=== PATIENT | male | born 1960 | race Caucasian/White ===

== ENCOUNTER 2016-11-18 14:11 | Emergency (ER) | payer OTHER ==
--- NOTE | 2016-11-18 14:53 | ERNOTE ---
Chest Pain/Cardiac HPI Chief Complaint: Chest Pain Time Seen by Provider: 11/18/16 14:34 Source: patient Exam Limitations: no limitations Immunizations: IMMUNIZATION HX History of Influenza Vaccine No Allergies/Adverse Reactions: Allergies No Known Allergies Allergy (Verified 11/18/16 14:25) Home Medications: HOME MEDICATIONS Nabumetone 750 mg PO BID #20 tablet 11/18/16 [Last Taken Unknown] Narrative: Pt began to have chest pain on the right side this morning after begining at work. He has tried many things such as position that have helped for a short amount of time but the pain always returns Timing: constant Severity/Quality: moderate Location: other - right chest Chest Pain Radiation: back Activities at Onset: other - usual work Modifying Factors - Improves: Present: position - for a short time Modifying Factors - Worsens: Present: movement Review of Systems - Review of Systems Constitutional: Present: no symptoms reported EYE: Present: no symptoms reported ENT: Present: no symptoms reported Respiratory: Absent: shortness of breath Cardiology: Absent: palpitations Gastrointestinal/Abdominal: Present: no symptoms reported Genitourinary: Present: no symptoms reported Musculoskeletal: Present: back pain, muscle pain Skin: Present: no symptoms reported Neurological: Present: no symptoms reported Endocrine: Present: no symptoms reported Hematologic/Lymphatic: Present: no symptoms reported Psych: Present: no symptoms reported - Patient's Past Medical History Patient History - Medical: GERD Patient History - Cardiac/Respiratory: Asthma Patient History - Cancer: No Hx of Cancer Patient History - Surgical Procedures: No surgical history - Social History Living Situations: home Smoking Status: Current every day smoker Alcohol Use: none Drug Use: none - Immunizations History of Influenza Vaccine: No Physical Exam - Physical Exam General Appearance: Present: wd/wn, alert, no apparent distress Eye Exam: Normal inspection: bilateral, PERRL: bilateral Ears, Nose, Throat: Present: normal ENT inspection Neck: Present: normal inspection, nontender Respiratory: Present: no respiratory distress, normal breath sounds, no accessory muscle use, lungs clear, chest tenderness - Right side with movement and some palpation Cardiovascular/Chest: Present: regular rate, rhythm, no murmur, normal peripheral pulses Back Exam: Present: normal inspection, no vertebral tenderness Extremity Exam: Present: normal inspection, non-tender, normal range of motion, no edema Neurological Exam: Present: alert, oriented, normal mood/affect, no motor/ sensory deficits Skin Exam: Present: normal color, warm/dry Lymphatic Exam: Present: no adenopathy ED Progress - Results and Orders Patient's Lab Results:: I have reviewed the patient's lab results. Results and Orders: Laboratory Tests 11/18/16 11/18/16 14:45 14:45 WBC 6.9 Hgb 13.9 Hct 42.0 Plt Count 256 Sodium 142 Potassium 4.7 H Chloride 106 Carbon Dioxide 28.8 Anion Gap 11.9 BUN 14 Creatinine 1.09 Est GFR (Non-Af Amer) 74 D Random Glucose 86 Calcium 9.1 Calcium Adj for Albumin 8.9 Total Bilirubin 0.5 AST 22 ALT 26 Alkaline Phosphatase 63 Troponin I Less than 0.017 Total Protein 7.1 Albumin 3.9 - Vital Signs Patient's Vital Signs:: I have reviewed the patient's vital signs. Vital Signs: Vital Signs 11/18/16 14:21 Temperature 36.6 C Pulse Rate 47 L Respiratory 15 Rate Blood Pressure 154/71 O2 Sat by Pulse 100 Oximetry - EKG EKG: NSR, no ST T wave changes EKG read: Interp. by me - X-Ray X-Ray #1 X-Ray: chest Interpretation: Reviewed by me X-ray Comments: Nothing acute - Progress/Reassessment Chief Complaint: Chest Pain Departure - Departure Clinical Impression: Chest pain, musculoskeletal Disposition: Home self-care Condition: Good Instructions: Chest Wall Pain, [id number], Nonspecific Chest Pain, Easy-to- Read Prescriptions: Nabumetone 750 mg PO BID #20 tablet
[2016-11-18 14:55] LABS: Hemoglobin 13.9 gm/dL (13.5-18.0); Mean Cell Volume 89.2 fl (78-100); Mean Corpuscular Hemoglobin 29.5 pg (27-31); Mean Corpuscular Hgb Conc 33.1 g/dl (32-36); Neutrophil # 4.1 K/mm3 (1.3-6.0); Neutrophil % 59.9 % (42-75.0); Platelet Count 256 K/mm3 (150-450); Red Blood Count 4.71 M/mm3 (4.7-6.0); Red Cell Distribution Width 13.4 % (11.5-14.0); White Blood Count 6.9 K/mm3 (4.0-10.5)
[2016-11-18 15:14] LABS: ALT 26 U/L (19-67); AST 22 U/L (0-48); Albumin * 3.9 gm/dl (3.4-5.0); Alkaline Phosphatase * 63 U/L (50-170); Anion Gap 11.9 mmol/L (6.8-13.8); BUN/Creatinine Ratio 12.8 (9.0-21.6); Bilirubin, Total 0.5 mg/dL (0.0-1.1); Blood Urea Nitrogen 14 mg/dL (6-23); Ca. Corrected For Albumin 8.9 mg/dL (8.4-10.2); Calcium * 9.1 mg/dL (7.9-10.9); Carbon Dioxide 28.8 mmol/L (24-32.6); Chloride 106 mmol/L (97-106); Glucose * 86 mg/dL (70-110); Potassium 4.7 mmol/L (3.4-4.6); Sodium 142 mmol/L (132-142); Total Protein 7.1 gm/dL (6.2-8.2)
[2016-11-18 15:22] LABS: Troponin I Less than 0.017 ng/ml (0.00-0.10)
[2016-11-18] MEDS ORDERED: KETOROLAC TROMETHAMINE 60 MG/2 ML VIAL IM ONE (15:41)
[2016-11-18] MEDS ORDERED: KETOROLAC TROMETHAMINE 30 MG/ML VIAL IV ONE (15:45)
[2016-11-18] MEDS ORDERED: KETOROLAC TROMETHAMINE 30 MG/ML VIAL ONE (15:45)
[2016-11-18 15:51] VITALS: BP 147/84
== END 2016-11-18 16:09 | disposition home or self-care (01) ==
LOC: ER 14:11
DX: R07.89 Other chest pain (principal); F17.210 Nicotine dependence, cigarettes, uncomplicated

== ENCOUNTER 2017-05-05 10:48 | Emergency (ER) | payer OTHER ==
[2017-05-05] MEDS ORDERED: DIPHTH,PERTUSS(ACELL),TET VAC 0.5 ML VIAL IM ONE ×2 (10:53→11:03)
--- NOTE | 2017-05-05 11:22 | ERNOTE ---
Lower Extremity HPI - General Lower Extremities Pain: ankle: left Time Seen by Provider: 05/05/17 10:53 Source: patient, EMS Exam Limitations: no limitations - Immun/Allergies/Home Medications Immunizations: IMMUNIZATION HX History of Influenza Vaccine No Allergies/Adverse Reactions: Allergies Allergy/AdvReac Type Severity Reaction Status Date / Time No Known Allergies Allergy Verified 05/05/17 10:55 Home Medications: HOME MEDICATIONS HYDROcodone/ACETAMINOPHEN [[place] 5-325] 1 each PO Q4H #20 tablet 05/05/17 [Last Taken Unknown] - History of Present Illness Narrative: The patient was at work and at approximately 100 pound weight landed on his left ankle. When the patient jumped backward to try to get out of the way he scraped his head on a fence and has superficial abrasions to the left parietal and right occipital area. He rates the pain in the ankle as being at least moderate in severity and has not attempted weightbearing since the injury. Occurred: just prior to arrival Location of Incident: work Method of Injury: Reports: direct blow Loss of Consciousness: Reports: no loss of consciousness Associated Symptoms: Reports: unable to bear weight Other Injuries: Reports: head Review of Systems - Review of Systems Constitutional: Present: See HPI EYE: Present: no symptoms reported ENT: Present: other - superficial abrasions 2 to the head and scalp Respiratory: Present: no symptoms reported Cardiology: Present: no symptoms reported Gastrointestinal/Abdominal: Present: no symptoms reported Genitourinary: Present: no symptoms reported Musculoskeletal: Present: See HPI, joint pain, joint swelling Skin: Present: no symptoms reported Neurological: Present: no symptoms reported Endocrine: Present: no symptoms reported Hematologic/Lymphatic: Present: no symptoms reported Psych: Present: no symptoms reported - Patient's Past Medical History Patient History - Medical: GERD Patient History - Cardiac/Respiratory: Asthma Patient History - Cancer: No Hx of Cancer Patient History - Surgical Procedures: No surgical history - Social History Living Situations: home Smoking Status: Current every day smoker Alcohol Use: none Drug Use: none - Immunizations History of Influenza Vaccine: No Physical Exam - Physical Exam General Appearance: Present: wd/wn, alert, moderate distress Head Exam: Present: lacerations - superficial in the form of abrasions Eye Exam: Normal inspection: bilateral, PERRL: bilateral Ears, Nose, Throat: Present: normal ENT inspection, H, normal pharynx Neck: Present: normal inspection, nontender Respiratory: Present: no respiratory distress, normal breath sounds, no accessory muscle use, chest nontender, lungs clear Cardiovascular/Chest: Present: regular rate, rhythm, no murmur, normal peripheral pulses Gastrointestinal/Abdominal: Present: normal bowel sounds, nontender, nondistended, soft, no organomegaly Rectal Exam: Present: deferred Back Exam: Present: normal inspection, normal range of motion Extremity Exam: Present: decreased range of motion, bony tenderness, joint swelling Neurological Exam: Present: alert, oriented, normal mood/affect Skin Exam: Present: normal color, warm/dry Lymphatic Exam: Present: no adenopathy ED Progress - Vital Signs Patient's Vital Signs:: I have reviewed the patient's vital signs. Vital Signs: Vital Signs 05/05/17 05/05/17 10:49 11:08 Temperature 36.0 C L Pulse Rate 80 67 Respiratory 12 15 Rate Blood Pressure 147/84 147/84 O2 Sat by Pulse 99 98 Oximetry - X-Ray X-Ray #1 X-Ray: ankle Interpretation: Reviewed by me - CT/Ultrasound CT/Ultrasound Narrative: CT of the head and CT of the left foot reviewed by me. - Progress/Reassessment Chief Complaint: Ankle Injury/ Pain Procedures Pre-Proc Neuro Vasc Exam: normal Hand-Made Type: fiberglass Splint: short leg Alignment good: Yes Splint applied by: Nurse Post-Proc Neuro Vasc Exam: normal Complications: Pt diya procedure well Plan - Plan Plan: I discussed the results of both the x-ray of the foot and the CT the foot with Dr. Jean-Baptiste and he recommends that we put the patient in a well padded cast, crutches and he will see him in the office in the next day or so to arrange for surgery. Departure Clinical Impression: Calcaneal fracture Qualifiers: Encounter type: initial encounter Calcaneus location: body Fracture type: closed Fracture alignment: nondisplaced Laterality: left Qualified Code(s): S92.015A - Nondisplaced fracture of body of left calcaneus, initial encounter for closed fracture Ankle fracture, left Qualifiers: Encounter type: initial encounter Fracture type: closed Qualified Code(s): S82.892A - Other fracture of left lower leg, initial encounter for closed fracture - Departure Disposition: Home self-care Condition: Fair Instructions: Calcaneal Fracture Repair, Ankle Fracture, [id number] Additional Instructions: Call Dr. Jean-Baptiste's office for appointment. No weightbearing of any kind and keep the foot elevated. For any movement use crutches to suspend all weight off the fractured foot. Referrals: Marcello Jean-Baptiste MD [Staff Physician] - Prescriptions: HYDROcodone/ACETAMINOPHEN [[place] 5-325] 1 each PO Q4H #20 tablet
[2017-05-05] MEDS ORDERED: NICOTINE 21 MG PATC TD SCH (13:00)
[2017-05-05] MEDS ORDERED: NICOTINE 21 MG PATC TD ONE (13:12)
[2017-05-05 16:22] VITALS: BP 142/77
== END 2017-05-05 14:40 | disposition home or self-care (01) ==
LOC: ER 10:48
PROC: 2W3RX1Z Immobilization of Left Lower Leg using Splint (ICD-10-PCS; principal; 2017-05-05)
DX: S92.015A Nondisplaced fracture of body of left calcaneus, initial encounter for closed fracture (principal); S82.892A Other fracture of left lower leg, initial encounter for closed fracture; S00.01XA Abrasion of scalp, initial encounter; S00.91XA Abrasion of unspecified part of head, initial encounter; F17.200 Nicotine dependence, unspecified, uncomplicated; W22.8XXA Striking against or struck by other objects, initial encounter; W20.8XXA Other cause of strike by thrown, projected or falling object, initial encounter; Y92.63 Factory as the place of occurrence of the external cause; Y99.0 Civilian activity done for income or pay